=== PATIENT | female | born 1995 | race Caucasian/White ===

== ENCOUNTER 2018-01-01 12:49 | Emergency (ER) | payer MEDICAID ==
[2018-01-01] MEDS: NEOMYC/POLYMYX/DEXAMETH OPH 5 ML RIGHT EYE (13:18)
== END 2018-01-01 14:01 | disposition home or self-care (01) ==
LOC: FTE 12:49
DX: T65.891A Toxic effect of other specified substances, accidental (unintentional), initial encounter (principal); T26.61XA Corrosion of cornea and conjunctival sac, right eye, initial encounter; X58.XXXA Exposure to other specified factors, initial encounter; Y92.89 Other specified places as the place of occurrence of the external cause
CPT/HCPCS: 99282; Z7502

== ENCOUNTER 2018-09-21 22:41 | Emergency (ER) | payer SELFPAY, MEDICAID | END 2018-09-21 23:54 | disposition home or self-care (01) | LOC: FTE 22:41 | DX: F41.9 Anxiety disorder, unspecified (principal); K21.9 Gastro-esophageal reflux disease without esophagitis | CPT/HCPCS: 99283 ==